=== PATIENT | female | born 2000 | race Caucasian/White ===

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

== ENCOUNTER 2018-08-05 02:08 | Emergency (ER) | payer OTHER ==
[~2018-08-05] VITALS: Ht 160 cm; Wt 61.0 kg
[2018-08-05] MEDS ORDERED: FLUORESCEIN SODIUM 1MG/STRIP LEFTEYE ONE (03:15)
[2018-08-05] MEDS ORDERED: PREDNISONE 20MG TABLET PO ONE (03:15)
[2018-08-05] MEDS ORDERED: CETIRIZINE 10MG TABLET PO SCH (03:15)
[2018-08-05] MEDS ORDERED: TETRACAINE 0.5% OPHTH DROPS 4ML LEFTEYE ONE (03:15)
[2018-08-05 04:11] VITALS: BP 110/65
== END 2018-08-05 04:25 | disposition home or self-care (01) ==
LOC: ER 02:29
DX: O99.511 Diseases of the respiratory system complicating pregnancy, first trimester (principal); O26.891 Other specified pregnancy related conditions, first trimester; J30.9 Allergic rhinitis, unspecified; H10.9 Unspecified conjunctivitis; Z3A.00 Weeks of gestation of pregnancy not specified
CPT/HCPCS: 81025; 99284; J7512